=== PATIENT | female | born 1945 | race Two or more races ===

== ENCOUNTER 2018-11-02 10:24 | Emergency (ER) | payer OTHER ==
[~2018-11-02] VITALS: Ht 165.1 cm; Wt 77.1 kg
[2018-11-02] MEDS ORDERED: METFORMIN HCL500 MG (10:56)
[2018-11-02] MEDS ORDERED: NEURONTIN600 MG (10:57)
[2018-11-02] MEDS ORDERED: NORVASC2.5 M1 (10:57)
[2018-11-02] MEDS ORDERED: LEVOTHYROXINE25 MCG (10:58)
[2018-11-02] MEDS ORDERED: TOPROL XL50 MG (10:58)
[2018-11-02] MEDS ORDERED: TEMAZEPAM30 MG (11:00)
[2018-11-02] MEDS ORDERED: ELAVIL PO (11:00)
[2018-11-02] MEDS ORDERED: VITAMIN D400 UNI2 PO (11:01)
[2018-11-02] MEDS ORDERED: ALENDRONATE SOD70 MG (11:01)
[2018-11-02] MEDS ORDERED: KETOCONAZOLE15 GM (11:02)
== END 2018-11-02 12:06 | disposition home or self-care (01) ==
LOC: ER 10:24
DX: M17.0 Bilateral primary osteoarthritis of knee (principal)

== ENCOUNTER 2023-02-27 13:05 | Inpatient (IN) | payer OTHER ==
[~2023-02-27] VITALS: Ht 165.1 cm; Wt 81.6 kg
[~2023-02-27 13:05] MED LIST: ALENDRONATE SOD70 MG; ELAVIL PO; KETOCONAZOLE15 GM; LEVOTHYROXINE25 MCG; METFORMIN HCL500 MG; NEURONTIN600 MG; NORVASC2.5 M1; TEMAZEPAM30 MG; TOPROL XL50 MG; VITAMIN D400 UNI2 PO
[2023-02-27] MEDS ORDERED: GLIMEPIRIDE1 MG (13:50)
[2023-02-27 15:47] LABS: HEMOGLOBIN 14.5 g/dL (12.0-15.00); MEAN CELL VOLUME 92.2 fL (80.00-100.00); MEAN CORPUSCULAR HEMOGLOBIN 29.7 pg (27.00-32.0); MEAN CORPUSCULAR HGB CONC 32.2 g/dl (32.0-36.0); PLATELET COUNT 272 K/uL (150-450); RED BLOOD COUNT 4.88 M/uL (4.00-6.00); RED CELL DISTRIBUTION WIDTH 13.3 % (11.5-14.5)
[2023-02-27 16:01] LABS: INR 1.01; PROTHROMBIN TIME 10.6 SECONDS (9.0-11.5)
[2023-02-27 16:05] LABS: CREATININE SERUM 0.59 mg/dL (0.55-1.02); GFR 98.83; POTASSIUM 3.62 mEq/L (3.5-5.1)
[2023-02-27 16:06] LABS: PH,URINE 5.5 (5.0-8.0); URINE APPEARANCE Turbid; URINE BILIRRUBIN Negative (NEGATIVE); URINE BLOOD Large; URINE COLOR Dark Yellow; URINE GLUCOSE Negative (NEGATIVE); URINE LEUKOCYTE Large; URINE NITRATE Negative
[2023-02-27 16:08] LABS: URINE BACTERIA 883.2 uL (0.0-1933); URINE EPITHELIAL CELLS 36.1 uL (0.0-38.8); URINE RBC 1918.9 uL (0.0-20.8)
[2023-02-27 16:10] LABS: URINE PROTEIN 100 (NEGATIVE); URINE WBC > 5548.3 uL (0.0-23.2)
[2023-03-02 06:17] LABS: HEMATOCRIT 39.8 % (36.0-45.00); HEMOGLOBIN 13.4 g/dL (12.0-15.00); MEAN CELL VOLUME 91.6 fL (80.00-100.00); MEAN CORPUSCULAR HEMOGLOBIN 30.9 pg (27.00-32.0); MEAN CORPUSCULAR HGB CONC 33.7 g/dl (32.0-36.0); PLATELET COUNT 227 K/uL (150-450); RED BLOOD COUNT 4.35 M/uL (4.00-6.00); RED CELL DISTRIBUTION WIDTH 13.4 % (11.5-14.5)
[2023-03-02 06:52] LABS: CALCIUM 7.5 mg/dL (8.5-10.1); CREATININE SERUM 0.39 mg/dL (0.55-1.02); GFR 159.36; POTASSIUM 3.77 mEq/L (3.5-5.1)
[2023-03-04] MEDS ORDERED: CEFDINIR300 MG PO (17:09)
== END 2023-03-04 17:15 | disposition home or self-care (01) | DRG 690 ==
LOC: ER 13:05 → MEDI 20:13
PROVIDERS: General Practice; ADMIT Internal Medicine; ATTEND Internal Medicine
PROC: BW21ZZZ Computerized Tomography (CT Scan) of Abdomen and Pelvis (ICD-10-PCS; principal; 2023-02-27)
DX: N30.01 Acute cystitis with hematuria (principal); B96.29 Other Escherichia coli [E. coli] as the cause of diseases classified elsewhere; I10 Essential (primary) hypertension; E11.9 Type 2 diabetes mellitus without complications; Z79.4 Long term (current) use of insulin; M19.09 Primary osteoarthritis, other specified site; N39.0 Urinary tract infection, site not specified